=== PATIENT | male | born 1955 | race Caucasian/White ===

== ENCOUNTER 2017-10-09 09:30 | Day surgery (SDC) | payer OTHER ==
[~2017-10-09 09:30] MED LIST: AVAPRO150 MG; HUMALOG MIX 75/10 ML
[2017-10-09] MEDS ORDERED: DUI500 PO (15:18)
[2017-10-09] MEDS ORDERED: OXYC1TAB9 PO (15:18)
== END 2017-10-09 17:25 | disposition home or self-care (01) ==
LOC: CIR.AMB 09:30
DX: M75.122 Complete rotator cuff tear or rupture of left shoulder, not specified as traumatic (principal); M66.812 Spontaneous rupture of other tendons, left shoulder